=== PATIENT | female | born 1990 | race Two or more races ===

== ENCOUNTER 2016-06-25 17:16 | Observation (INO) | payer MEDICAID ==
[2016-06-25] MEDS ORDERED: ASPIRIN 81 MG CHEWABLE TABLET PO ONE (17:46)
--- NOTE | 2016-06-25 17:46 | Emergency Department Record ---
History of Present Illness - General Chief Complaint: Chest Pain Stated Complaint: CHEST PAIN,THADDEUS,RAPID HEART BEAT Time Seen by Provider: 06/25/16 17:39 Source: Patient, Family (caregiver), RN notes reviewed Mode of Arrival: Wheelchair - History of Present Illness Initial Comments: patient has been vomiting and developed chest pain and she also has diarrhea but she took a laxative yesterday which she uses all the time for constipation. PMH of progressive MS and she is in a wheel chair and has difficulty talking. Caregiver is with here and does most of the talking. Primary is Dr. Bryson. Onset/Timin -: Hour(s) Onset: Awoke with symptoms Pain Location: Substernal Severity: Moderate Quality: Aching Consistency: Constant Improves With: Nothing Worsens With: Nothing Treatments Prior to Arrival: None - Related Data Home Medications Medication Instructions Recorded Confirmed Last Taken Natalizumab [Tysabri] 300 mg IV MONTHLY 02/21/16 06/25/16 06/25/16 Dronabinol [Marinol] 2.5 mg PO QD cap 05/12/16 06/25/16 06/25/16 Meclizine HCl [Bonine] 25 mg PO QD PRN tab 05/12/16 06/25/16 06/25/16 Sennosides [Senna] 2 tab PO QD PRN tab 05/12/16 06/25/16 Unknown Simethicone 125 mg PO DAILY PRN cap 05/12/16 06/25/16 Unknown Allergies Allergy/AdvReac Type Severity Reaction Status Date / Time Sulfa (Sulfonamide Allergy Unknown PT UNSURE Unverified 06/09/16 14:23 Antibiotics) OF REACTION [SULFA (SULFONAMIDE ANTIBIOTICS)] Travel Screening - Travel/Exposure Within Last 30 Days Have you traveled within the last 30 days?: No - Travel/Exposure Within Last Year Have you traveled outside the [place] in the last year?: No - Additonal Travel Details Have you been exposed to anyone with a communicable illness?: No - Travel Symptoms Symptom Screening: None Review of Systems Reviewed: No additional complaints except as noted below Constitutional: Reports: As per HPI. Denies: Chills, Fever, Malaise, Night sweats, Weakness, Weight change Eyes: Reports: As per HPI. Denies: Eye discharge, Eye pain, Photophobia, Vision change ENT: Reports: As per HPI. Denies: Congestion, Dental pain, Ear pain, Epistaxis , Hearing loss, Throat pain Respiratory: Reports: As per HPI. Denies: Cough, Dyspnea, Hemoptysis, Stridor, Wheezes Cardiovascular: Reports: As per HPI, Chest pain. Denies: Arrhythmia, Dyspnea on exertion, Edema, Murmurs, Orthopnea, Palpitations, Paroxysmal nocturnal dyspnea, Rheumatic Fever, Syncope Endocrine: Reports: As per HPI. Denies: Fatigue, Heat or cold intolerance, Polydipsia, Polyuria Gastrointestinal: Reports: As per HPI, Abdominal pain, Diarrhea, Nausea, Vomiting. Denies: Constipation, Hematemesis, Hematochezia, Melena Genitourinary: Reports: As per HPI. Denies: Abnormal menses, Discharge, Dyspareunia, Dysuria, Frequency, Hematuria, Incontinence, Retention, Urgency Musculoskeletal: Reports: As per HPI. Denies: Arthralgia, Back pain, Gout, Joint swelling, Myalgia, Neck pain Skin: Reports: As per HPI. Denies: Bruising, Change in color, Change in hair/ nails, Lesions, Pruritus, Rash Neurological: Reports: As per HPI. Denies: Abnormal gait, Confusion, Headache, Numbness, Paresthesias, Seizure, Tingling, Tremors, Vertigo, Weakness Psychiatric: Reports: As per HPI. Denies: Anxiety, Auditory hallucinations, Depression, Homicidal thoughts, Suicidal thoughts, Visual hallucinations Hematological/Lymphatic: Reports: As per HPI. Denies: Anemia, Blood Clots, Easy bleeding, Easy bruising, Swollen glands Past Medical History - SOCIAL HISTORY Smoking Status: Never smoker Alcohol Use: None Drug Use: None - RESPIRATORY Hx Respiratory Disorders: No - CARDIOVASCULAR Hx Cardio Disorders: Yes Comment:: murmur - NEURO Hx Neuro Disorders: Yes Hx Dizziness: Yes Hx Headaches: Yes Comment:: multiple sclerosis - GI Hx GI Disorders: No - Hx Genitourinary Disorders: No - ENDOCRINE Hx Endocrine Disorders: No - MUSCULOSKELETAL Hx Musculoskeletal Disorders: No - PSYCH Hx Psych Problems: Yes Hx Anxiety: Yes Hx Depression: Yes - HEMATOLOGY/ONCOLOGY Hx Hematology/Oncology Disorders: No Family Medical History Any Significant Family History?: No Family Hx Comment (NOT TO BE USED IN PLACE OF ITEMS BELOW): Adopted Physical Exam - General General Appearance: Alert, Oriented x3, Cooperative, No acute distress - Head Head exam: Normal inspection - Eye Eye exam: Normal appearance, PERRL Pupils: Normal accommodation - ENT ENT exam: Normal exam, Mucous membranes moist, Normal external ear exam, Normal orophraynx, TM's normal bilaterally Ear exam: Normal external inspection. negative: External canal tenderness Nasal Exam: Normal inspection. negative: Discharge, Sinus tenderness Mouth exam: Normal external inspection, Tongue normal Teeth exam: Normal inspection. negative: Dental caries Throat exam: Normal inspection. negative: Tonsillar erythema, Tonsillar exudate - Neck Neck exam: Normal inspection, Full ROM. negative: Tenderness - Respiratory Respiratory exam: Normal lung sounds bilaterally. negative: Respiratory distress - Cardiovascular Cardiovascular Exam: Regular rate, Normal rhythm, Normal heart sounds - GI/Abdominal GI/Abdominal exam: Soft, Normal bowel sounds, Tenderness (epigastric pain on palpation and the pain goes into her chest) - Rectal Rectal exam: Deferred - exam: Deferred - Extremities Extremities exam: Normal inspection, Full ROM, Normal capillary refill. negative: Tenderness - Back Back exam: Reports: Normal inspection, Full ROM. Denies: Muscle spasm, Rash noted, Tenderness - Neurological Neurological exam: Alert, Normal gait, Oriented X3, Reflexes normal - Psychiatric Psychiatric exam: Normal affect, Normal mood - Skin Skin exam: Dry, Intact, Normal color, Warm Course Vital Signs 06/25/16 17:20 Temperature 99.3 F Pulse Rate 113 H Respiratory 20 Rate Blood Pressure 115/89 Pulse Ox 98 - Reevaluation(s) Reevaluation #1: discussed case with chelsie and will admit to Dr. Bryson for serial cardiac enzymes. 06/25/16 18:50 Medical Decision Making - Lab Data Result diagrams: 06/25/16 18:04 06/25/16 18:04 Disposition Clinical Impression: Chest pain, Abdominal pain, Hypokalemia, Multiple sclerosis, Gastroesophageal reflux disease Decision to Admit: Admit from ER Forms: Patient Portal Access Time of Disposition: 18:57
[2016-06-25] MEDS ORDERED: AL HYDROX/MAG HYDROX 30ML UD PO ONE ×2 (17:49→18:48)
[2016-06-25 18:09] LABS: BASO % 0.3 % (0-6); EOS % 0.7 % (0-6); GRAN % 54.9 % (47-80); HEMATOCRIT 43.2 % (35.0-47.0); LYMPH % 31.7 % (16-45); MEAN CELL VOLUME 82.8 fl (81-97); MEAN CORPUSCULAR HEMOGLOBIN 28.7 pg (27-33); MEAN CORPUSCULAR HGB CONC 34.7 g/dl (32-36); MEAN PLATELET VOLUME 10.7 fl (7.4-10.4); MONO % 12.4 % (0-9); PLATELET COUNT 359 K/uL (130-400); RED BLOOD COUNT 5.22 M/uL (3.80-5.40); RED CELL DISTRIBUTION WIDTH 13.5 % (11.5-14.5)
[2016-06-25 18:21] LABS: ALBUMIN 4.8 gm/dL (3.5-5.0); BILIRUBIN,TOTAL 0.47 mg/dL (0.2-1.3); TOTAL PROTEIN 8.2 gm/dL (6.3-8.2)
[2016-06-25 18:22] LABS: ANION GAP 12.1 (7-16); BLOOD UREA NITROGEN 10 mg/dL (7-17); CARBON DIOXIDE 29.9 mmol/L (22-30); CREATININE 0.5 mg/dL (0.52-1.04); EST GLOMERULAR FILTRATION RATE > 60 ml/min; GLUCOSE,RANDOM 91 mg/dL (70-110)
[2016-06-25 18:33] LABS: CKMB 0.2 ug/L (0-6); TROPONIN I < 0.012 ng/mL (0.00-0.034)
[2016-06-25] MEDS ORDERED: POTASSIUM CHLORIDE 20 MEQ TABLET PO ONE (18:41)
[2016-06-25 18:47] LABS: URINE APPEARANCE SL CLOUDY; URINE BILIRUBIN SMALL (NEGATIVE); URINE BLOOD NEGATIVE (NEGATIVE); URINE COLOR YELLOW; URINE GLUCOSE (UA) NEGATIVE (NEGATIVE); URINE KETONE 40 mg/dL (NEGATIVE); URINE LEUKOCYTE ESTERASE NEGATIVE (NEGATIVE); URINE NITRITE NEGATIVE (NEGATIVE)
[2016-06-25] MEDS ORDERED: PANTOPRAZOLE SODIUM 40 MG TABLET PO ONE (18:49)
[2016-06-25] MEDS ORDERED: 0.9 % SODIUM CHLORIDE 1000ML 1,000 ML IV PRN (18:58)
[2016-06-25] MEDS ORDERED: ACETAMINOPHEN 500 MG TABLET PO PRN (18:58)
[2016-06-25] MEDS: ONDANSETRON HCL IV 4 MG/2 ML VIAL IVP PRN (21:37)
[2016-06-25] MEDS ORDERED: SUCRALFATE 1 G/10 ML UD PO ONE (21:51)
[2016-06-26] MEDS ORDERED: CALCIUM CARBONATE 500 MG TAB.CHEW PO SCH ×2 (00:30→12:20)
[2016-06-26 01:15] LABS: CKMB < 0.2 ug/L (0-6); TROPONIN I < 0.012 ng/mL (0.00-0.034)
--- NOTE | 2016-06-26 09:49 | History & Physical ---
History of Present Illness - Date of Service Date of Service for History & Physical: 06/26/16 - History of Present Illness Admitting Diagnosis: chest pain History of Present Illness: 25 yo female admitted w/ CC of chest pain. PMHx of MS (diagnosed in 2008), chronic nausea, constipation, h/o bleeding ulcer when patient was 10 years old, and unintentional weight loss of 43 #'s in the past 3 months. Patient brought to our ED yesterday by her caregiver for chest pain. Onset of chest pain was yesterday morning. Patient woke up with substernal chest pain. described as sharp/achy. Aggravated by nothing. Alleviated by Tums. Associated symptoms included diaphoresis, abdominal discomfort and nausea. Upon presentation, temp 99.3, HR 113, RR 20, BP 115/89, pulse ox 98 % on RA. CBC/BMP relatively normal aside from low potassium of 3.1. normal hepatic function. amylase/lipase normal. ESR normal. UA: 30 mg protein, 40 mg ketones , small bili, no leuks. CXR: EKG: ST dep in II, III, AVF. t wave inversion V1 ,2. ST depression V3,4,5,6. Patient received 20 mEq of Potassium in the ER. Serial enzymes ordered. Placed on Telemetry and admitted for further medical management. 06/26/16: This morning, patient lying in bed comfortably with mother at bedside. Patient has difficulty with communication. History obtained from patient and caregiver. She denies any chest pain since yesterday evening. States she found Tums to alleviate her pain completely. Nausea well controlled at this time. Denies abdominal pain, fever, chills, vomiting, cough, jaw or upper extremity pain. RUQ abdominal pain on exam, however. +dysphagia to both liquids/solids. Patient deals with chronic nausea and constipation. Patient typically take Senna and a daily probiotic at home. patient's primary physician placed patient on an antibiotic for UTI like symptoms last week, however this was discontinued as it worsened patient's nausea and caused diarrhea. Diarrhea resolved once antibiotic was stopped. patient now has not had a bowel movement since Thursday. Caregiver reports 3 month h/o nausea. Nausea has not been associated with any medication changes. Meclizine helps with nausea. Since nausea began 3 months ago, patient has also experienced a 43 # unintentional weight loss. Patient does not currently have a GI doctor. Patient is adopted and unsure of any family cardiac history. no previous history of DVT. PCP: Dr. Fregoso Neurologist: Dr. Rausch Travel Screening - Travel/Exposure Within Last 30 Days Have you traveled within the last 30 days?: No - Travel/Exposure Within Last Year Have you traveled outside the [place] in the last year?: No - Additonal Travel Details Have you been exposed to anyone with a communicable illness?: No - Travel Symptoms Symptom Screening: None Review of Systems Constitutional: Reports: As per HPI. Denies: Chills, Fever, Malaise, Night sweats, Weakness, Weight change Eyes: Reports: As per HPI. Denies: Eye discharge, Eye pain, Photophobia, Vision change ENT: Reports: As per HPI. Denies: Congestion, Dental pain, Ear pain, Epistaxis , Hearing loss, Throat pain Respiratory: Reports: As per HPI. Denies: Cough, Dyspnea, Hemoptysis, Stridor, Wheezes Cardiovascular: Reports: As per HPI. Denies: Arrhythmia, Chest pain, Dyspnea on exertion, Edema, Murmurs, Orthopnea, Palpitations, Paroxysmal nocturnal dyspnea, Rheumatic Fever, Syncope Endocrine: Reports: As per HPI. Denies: Fatigue, Heat or cold intolerance, Polydipsia, Polyuria Gastrointestinal: Reports: As per HPI, Abdominal pain, Nausea. Denies: Constipation, Diarrhea, Hematemesis, Hematochezia, Melena, Vomiting Genitourinary: Reports: As per HPI. Denies: Abnormal menses, Discharge, Dyspareunia, Dysuria, Frequency, Hematuria, Incontinence, Retention, Urgency Musculoskeletal: Reports: As per HPI. Denies: Arthralgia, Back pain, Gout, Joint swelling, Myalgia, Neck pain Skin: Reports: As per HPI. Denies: Bruising, Change in color, Change in hair/ nails, Lesions, Pruritus, Rash Neurological: Reports: As per HPI. Denies: Abnormal gait, Confusion, Headache, Numbness, Paresthesias, Seizure, Tingling, Tremors, Vertigo, Weakness Psychiatric: Reports: As per HPI. Denies: Anxiety, Auditory hallucinations, Depression, Homicidal thoughts, Suicidal thoughts, Visual hallucinations Hematological/Lymphatic: Reports: As per HPI. Denies: Anemia, Blood Clots, Easy bleeding, Easy bruising, Swollen glands Past Medical History - SOCIAL HISTORY Smoking Status: Never smoker Alcohol Use: None Drug Use: None - RESPIRATORY Hx Respiratory Disorders: No - CARDIOVASCULAR Hx Cardio Disorders: Yes Comment:: murmur - NEURO Hx Neuro Disorders: Yes Hx Dizziness: Yes Hx Headaches: Yes Comment:: multiple sclerosis - GI Hx GI Disorders: No Hx Wt Loss/Wt Gain: Yes (30 pound weight loss since 03/14/16) Comment:: constipation-takes Senna daily - Hx Genitourinary Disorders: No - ENDOCRINE Hx Endocrine Disorders: No - MUSCULOSKELETAL Hx Musculoskeletal Disorders: No - PSYCH Hx Psych Problems: Yes Hx Anxiety: Yes Hx Depression: Yes - HEMATOLOGY/ONCOLOGY Hx Hematology/Oncology Disorders: No Family Medical History Any Significant Family History?: No Family Hx Comment (NOT TO BE USED IN PLACE OF ITEMS BELOW): Adopted H&P Meds/Allergies - Allergies Allergies: Allergies Allergy/AdvReac Type Severity Reaction Status Date / Time Sulfa (Sulfonamide Allergy Unknown PT UNSURE Unverified 06/09/16 14:23 Antibiotics) OF REACTION [SULFA (SULFONAMIDE ANTIBIOTICS)] - Home Medications Home Medications Medication Instructions Recorded Confirmed Last Taken Natalizumab [Tysabri] 300 mg IV MONTHLY 02/21/16 06/25/16 06/25/16 Dronabinol [Marinol] 2.5 mg PO QD cap 05/12/16 06/25/16 06/25/16 Meclizine HCl [Bonine] 25 mg PO QD PRN tab 05/12/16 06/25/16 06/25/16 Sennosides [Senna] 2 tab PO QD PRN tab 05/12/16 06/25/16 Unknown Simethicone 125 mg PO DAILY PRN cap 05/12/16 06/25/16 Unknown - Active Medications Active Medications: Current Medications Acetaminophen (Tylenol 500mg Tab) 500 mg PO Q6H PRN PRN Reason: PAIN/TEMP Last Admin: 06/26/16 00:23 Dose: 500 mg Enoxaparin Sodium (Lovenox) 40 mg SC DAILY [facility] Hydroxyzine Pamoate (Vistaril) 25 mg PO TID PRN PRN Reason: anxiety Sodium Chloride () 1,000 mls @ 40 mls/hr IV .Q24H PRN PRN Reason: LARGE VOLUME IV Ondansetron HCl (Zofran) 4 mg IVP Q4H PRN PRN Reason: NAUSEA Last Admin: 06/25/16 21:37 Dose: 4 mg Pantoprazole Sodium (Protonix Iv) 40 mg IV DAILY [facility] Patient Own Med: (Marinol 2.5 Mg) 1 each PO DAILY [facility] Patient Own Med: (Cranberry 500 Mg) 2 each PO DAILY [facility] Patient Own Med: Vitamin C 1000 Mg ( Ascorbic Acid) 1 each PO DAILY [facility] Senna/Docusate Sodium (Senna Plus) 2 each PO BID [facility] Physical Exam - Vital Signs Vital Signs: Vital Signs - Last 24 Hrs Temp Pulse Resp BP BP Pulse Ox 06/26/16 09:01 98.1 F 118 H 16 114/62 99 06/26/16 05:50 97.8 F 87 18 130/98 97 06/25/16 22:55 99.1 F 96 H 147/87 96 06/25/16 22:35 96 H 150/96 96 06/25/16 22:20 85 147/97 96 06/25/16 22:05 90 20 147/98 96 06/25/16 21:50 98.7 F 88 26 H 149/95 93 L 06/25/16 20:41 98.5 F 84 21 117/74 97 - General General Appearance: Alert, Oriented x3, Cooperative, No acute distress - Head Head exam: Normal inspection - Eye Eye exam: Normal appearance, PERRL Pupils: Normal accommodation - ENT ENT exam: Normal exam, Mucous membranes moist, Normal external ear exam, Normal orophraynx, TM's normal bilaterally Ear exam: Normal external inspection. negative: External canal tenderness Nasal Exam: Normal inspection. negative: Discharge, Sinus tenderness Mouth exam: Normal external inspection, Tongue normal Teeth exam: Normal inspection. negative: Dental caries Throat exam: Normal inspection. negative: Tonsillar erythema, Tonsillar exudate - Neck Neck exam: Normal inspection, Full ROM. negative: Tenderness - Respiratory Respiratory exam: Normal lung sounds bilaterally. negative: Respiratory distress - Cardiovascular Cardiovascular Exam: Normal rhythm, Normal heart sounds, Tachycardia - GI/Abdominal GI/Abdominal exam: Soft, Normal bowel sounds, Tenderness (RUQ on palpation) - Rectal Rectal exam: Deferred - exam: Deferred - Extremities Extremities exam: Normal inspection, Full ROM, Normal capillary refill. negative: Tenderness - Back Back exam: Reports: Normal inspection, Full ROM. Denies: Muscle spasm, Rash noted, Tenderness - Neurological Neurological exam: Alert, Normal gait, Oriented X3, Reflexes normal - Psychiatric Psychiatric exam: Normal affect, Normal mood - Skin Skin exam: Dry, Intact, Normal color, Warm Results - Labs Result Diagrams: 06/25/16 18:04 06/25/16 18:04 Labs Last 24 Hours: Laboratory Results - last 24 hr 06/26/16 00:48 CK-MB (CK-2) < 0.2 Troponin I < 0.012 VTE H&P Assessment - Risk for VTE Risk for VTE: Yes Risk Level: Low Risk Assessment Date: 06/26/16 Risk Assessment Time: 10:00 VTE Orders Placed or Will Be Placed: Yes Plan - Detailed Diagnosis and Plan (1) Abdominal pain Current Visit: Yes Status: Acute Base Code: R10.9 - UNSPECIFIED ABDOMINAL PAIN Comment: 06/26/16: biliary vs. constipation vs. other? - abd u/s ordered to r/o biliary etiology - patient w/o bowel movement since thursday. active BS's on exam. Will start home bowel regimen back up. - mother reports patient had bleeding peptic ulcer when she was 10 yo. Will continue Pantoprazole. - no melena, hematemesis, or hematochezia. - continue anti emetics as needed for nausea - 43 # weight loss within the last 3 months along with nausea since that time. - outpatient gastroenterology referral recommended to further evaluate chronic nausea, dysphagia and unintentional weight loss. (2) Chest pain Current Visit: Yes Status: Acute Base Code: R07.9 - CHEST PAIN, UNSPECIFIED Comment: 06/26/16: Cardiac vs. GI vs. anxiety vs. other? - CE negative x 3 - EKG (in the ED): ST dep II,III,AVF. T wave inversion V1,2. ST dep V3,4,5,6. - CP resolved with TUMS. Denies CP, upper extremity or jaw pain, SOB, dizziness. - Family cardiac hx unknown as patient is adopted. non smoker. - ECHO ordered for 06/27/16. (3) Hypokalemia Current Visit: Yes Status: Acute Base Code: E87.6 - HYPOKALEMIA Comment: 06/26/16: received 20 mEq of PO Potassium in the ED. Will recheck potassium level today and replace if needed. (4) Multiple sclerosis Current Visit: Yes Status: Acute Base Code: G35 - MULTIPLE SCLEROSIS Comment: 06/26/16: continue home medications. (5) DVT prophylaxis Current Visit: Yes Status: Acute Base Code: [id number] - Comment: 06/26/16: Low risk- no ambulation. Lovenox 40 mg SQ daily. (6) Full code status Current Visit: Yes Status: Acute Base Code: Z78.9 - OTHER SPECIFIED HEALTH STATUS Comment: 06/26/16: patient will remain full code during her hospitalization
[2016-06-26] MEDS: HYDROXYZINE PAMOATE 25 MG CAPSULE PO PRN ×3 (09:51→22:04)
[2016-06-26] MEDS: PANTOPRAZOLE SODIUM IV 40 MG VIAL IV SCH (09:51)
[2016-06-26] MEDS: ENOXAPARIN 40 MG/0.4 ML SYR SC SCH (09:51)
[2016-06-26] MEDS: MARINOL PO SCH ×2 (09:52→10:13)
[2016-06-26 09:54] LABS: CKMB < 0.2 ug/L (0-6); TROPONIN I < 0.012 ng/mL (0.00-0.034)
[2016-06-26] MEDS: BIFIDOBACTERIUM INFANTIS 4 MG CAPSULE PO SCH (10:04)
[2016-06-26] MEDS: SENNOSIDES/DOCUSATE SODIUM UD CAPSULE PO SCH ×2 (10:04→22:03)
[2016-06-26] MEDS: CRANBERRY 500 MG PO SCH (10:13)
[2016-06-26] MEDS: VITAMIN C 1000 MG PO SCH (10:14)
[2016-06-26] MEDS ORDERED: ALBUTEROL HFA 8 GM INHALER INH PRN (11:43)
[2016-06-26] MEDS ORDERED: CALCIUM CARBONATE 500 MG TAB.CHEW PO PRN (12:02)
[2016-06-26 17:30] LABS: CKMB < 0.2 ug/L (0-6); TROPONIN I < 0.012 ng/mL (0.00-0.034)
[2016-06-26] MEDS: ONDANSETRON HCL IV 4 MG/2 ML VIAL IVP PRN (20:07)
[2016-06-27] MEDS ORDERED: DIPHENHYDRAMINE HCL 25 MG CAPSULE PO PRN (00:22)
[2016-06-27 06:32] LABS: ANION GAP 10.8 (7-16); BLOOD UREA NITROGEN 9 mg/dL (7-17); CARBON DIOXIDE 28.2 mmol/L (22-30); CREATININE 0.5 mg/dL (0.52-1.04); EST GLOMERULAR FILTRATION RATE > 60 ml/min; GLUCOSE,RANDOM 88 mg/dL (70-110)
--- NOTE | 2016-06-27 07:16 | RADIOLOGY REPORT ---
EXAM: CHEST, TWO VIEWS HISTORY: RAPID HEART BEAT WITH CHEST PAIN AND DIFFICULTY BREATHING. TECHNIQUE: AP and lateral views of the chest were obtained. Comparison: 01/21/16. FINDINGS: The heart, mediastinum, and pulmonary vasculature are normal. The lungs are clear. There is no pneumothorax or effusion. The bones appear intact. IMPRESSION: STABLE CHEST WITH NO ACUTE PROCESS IDENTIFIED. JOB NUMBER: [id number] MTDD
--- NOTE | 2016-06-27 07:24 | ULTRASOUND REPORT ---
EXAM: ULTRASOUND OF THE ABDOMEN COMPLETE HISTORY: RIGHT UPPER QUADRANT ABDOMINAL PAIN AND TENDERNESS SINCE FEBRUARY OF 2016. TECHNIQUE: Routine ultrasound examination of the abdomen was performed. Comparison: None. FINDINGS: The examination is mildly limited due to patient motion. The pancreas and left liver lobe are not optimally visualized due to overlying bowel gas. The visualized portions of the pancreas are normal in appearance. The abdominal aorta and inferior vena cava are normal in appearance. The visualized liver is homogeneous in echotexture and no intra or extrahepatic biliary ductal dilatation is seen with the common hepatic duct measuring 3.3 mm. The gallbladder is normal in appearance. The spleen is not enlarged and is homogeneous in echotexture. the kidneys to the extent visualized are smoothly marginated and without hydronephrosis. The right kidney measures 12.2 cm in length while the left kidney measures 11.8 cm in length. No cystic nor contour deforming solid renal mass is seen. There is a 6 mm echogenic focus in the upper pole of the right kidney consistent with avascular reflection or nonshadowing, nonobstructing calculus. IMPRESSION: 1. THE EXAM IS MILDLY LIMITED WITH THE PANCREAS AND LEFT LIVER LOBE NOT OPTIMALLY VISUALIZED. 2. 6 MM ECHOGENIC FOCUS IN THE UPPER POLE OF THE RIGHT KIDNEY IS CONSISTENT WITH AVASCULAR REFLECTION OR NONOBSTRUCTING CALCULUS. 3. NO OTHER ABNORMALITY IS IDENTIFIED. JOB NUMBER: [id number] [facility]
[2016-06-27] MEDS: ONDANSETRON HCL IV 4 MG/2 ML VIAL IVP PRN (08:41)
[2016-06-27] MEDS ORDERED: BISACODYL 10 MG SUPP RC ONE (09:40)
[2016-06-27] MEDS: SENNOSIDES/DOCUSATE SODIUM UD CAPSULE PO SCH (10:29)
[2016-06-27] MEDS: MARINOL PO SCH (10:30)
[2016-06-27] MEDS: VITAMIN C 1000 MG PO SCH (10:32)
[2016-06-27] MEDS: CRANBERRY 500 MG PO SCH (10:32)
[2016-06-27] MEDS: BIFIDOBACTERIUM INFANTIS 4 MG CAPSULE PO SCH (10:33)
[2016-06-27] MEDS: HYDROXYZINE PAMOATE 25 MG CAPSULE PO PRN (10:33)
[2016-06-27] MEDS: ENOXAPARIN 40 MG/0.4 ML SYR SC SCH (10:36)
--- NOTE | 2016-06-27 11:22 | Discharge Summary ---
Providers Discharge Summary Date: 06/27/16 Date of admission: 06/25/16 20:09 Expected Date of Discharge: 06/27/16 Attending physician: AZUL SOTELO Primary care physician: AZUL SOTELO Physical Exam - Vital Signs Vital Signs: Vital Signs - Last 24 Hrs Temp Pulse Resp BP BP BP Pulse Ox 06/27/16 09:10 98.2 F 75 16 118/71 100 06/27/16 09:00 73 17 06/27/16 07:35 98.3 F 92 H 16 108/73 99 06/27/16 03:00 97.6 F 68 12 159/88 98 06/26/16 19:38 98.1 F 72 14 102/69 98 06/26/16 16:51 98.2 F 88 14 111/72 100 06/26/16 13:00 98.4 F 100 H 18 94/58 100 06/26/16 11:36 98.1 F 114/62 - General General Appearance: Alert, Oriented x3, Cooperative, No acute distress - Head Head exam: Normal inspection - Eye Eye exam: Normal appearance, PERRL Pupils: Normal accommodation - ENT ENT exam: Normal exam, Mucous membranes moist, Normal external ear exam, Normal orophraynx, TM's normal bilaterally Ear exam: Normal external inspection. negative: External canal tenderness Nasal Exam: Normal inspection. negative: Discharge, Sinus tenderness Mouth exam: Normal external inspection, Tongue normal Teeth exam: Normal inspection. negative: Dental caries Throat exam: Normal inspection. negative: Tonsillar erythema, Tonsillar exudate - Neck Neck exam: Normal inspection, Full ROM. negative: Tenderness - Respiratory Respiratory exam: Normal lung sounds bilaterally. negative: Respiratory distress - Cardiovascular Cardiovascular Exam: Normal rhythm, Normal heart sounds, Tachycardia - GI/Abdominal GI/Abdominal exam: Soft, Normal bowel sounds. negative: Tenderness - Rectal Rectal exam: Deferred - exam: Deferred - Extremities Extremities exam: Normal inspection, Full ROM, Normal capillary refill. negative: Tenderness - Back Back exam: Reports: Normal inspection, Full ROM. Denies: Muscle spasm, Rash noted, Tenderness - Neurological Neurological exam: Alert, Normal gait, Oriented X3, Reflexes normal - Psychiatric Psychiatric exam: Normal affect, Normal mood - Skin Skin exam: Dry, Intact, Normal color, Warm Hospitalization - Hospitalization Admission Diagnosis: chest pain - Problem List/Discharge Diagnosis (1) Abdominal pain Current Visit: Yes Status: Acute Base Code: R10.9 - UNSPECIFIED ABDOMINAL PAIN Comment: 06/27/16: ABD u/s: gallbladder unremarkable. - I suspect generalized abdominal pain related to constipation/gas. No rebound or guarding on exam. Patient with large bowel movement today which improve abd pain. - active BS's on exam. - continue home bowel regimen. - mother reports patient had bleeding peptic ulcer when she was 10 yo. -Will continue Pantoprazole as outpatient. - no melena, hematemesis, or hematochezia. - continue anti emetics as needed for nausea - 43 # weight loss within the last 3 months along with nausea since that time. - outpatient gastroenterology referral placed. this was recommended to further evaluate chronic nausea, dysphagia and unintentional weight loss. Gave patient' s caregiver [facility] number so that she can contact to schedule an appt at their earliest convenience. - encouraged family/caregiver to bring patient back re any new or worsening abd pain. - f/up visit with Dr. Ley on July 14. (2) Chest pain Current Visit: Yes Status: Acute Base Code: R07.9 - CHEST PAIN, UNSPECIFIED Comment: 06/27/16: Cardiac vs. GI vs. anxiety vs. other? - CE negative x 4 - EKG (in the ED): ST dep II,III,AVF. T wave inversion V1,2. ST dep V3,4,5,6. - CP resolved with TUMS 06/26/16. Denies CP, upper extremity or jaw pain, SOB, dizziness. - Family cardiac hx unknown as patient is adopted. non smoker. - ECHO 06/27/16: EF of 63% - outpatient cardiology referral placed - encouraged mother and caregiver to bring patient back to the ER if chest pain returns. (3) Hypokalemia Current Visit: Yes Status: Acute Base Code: E87.6 - HYPOKALEMIA Comment: 06/27/16: resolved (4) Multiple sclerosis Current Visit: Yes Status: Acute Base Code: G35 - MULTIPLE SCLEROSIS Comment: 06/27/16: continue home medications. (5) Full code status Current Visit: Yes Status: Acute Base Code: Z78.9 - OTHER SPECIFIED HEALTH STATUS Comment: 06/27/16: patient remained full code during her hospitalization - Hospitalization Course Disposition: Home Health Service Hospital Course: 25 yo female admitted w/ CC of chest pain. PMHx of MS (diagnosed in 2008), chronic nausea, constipation, h/o bleeding ulcer when patient was 10 years old, and unintentional weight loss of 43 #'s in the past 3 months. Patient brought to our ED yesterday by her caregiver for chest pain. Onset of chest pain was yesterday morning. Patient woke up with substernal chest pain. described as sharp/achy. Aggravated by nothing. Alleviated by Tums. Associated symptoms included diaphoresis, abdominal discomfort and nausea. Upon presentation, temp 99.3, HR 113, RR 20, BP 115/89, pulse ox 98 % on RA. CBC/BMP relatively normal aside from low potassium of 3.1. normal hepatic function. amylase/lipase normal. ESR normal. UA: 30 mg protein, 40 mg ketones , small bili, no leuks. CXR: EKG: ST dep in II, III, AVF. t wave inversion V1 ,2. ST depression V3,4,5,6. Patient received 20 mEq of Potassium in the ER. Serial enzymes ordered. Placed on Telemetry and admitted for further medical management. 06/26/16: This morning, patient lying in bed comfortably with mother at bedside. Patient has difficulty with communication. History obtained from patient and caregiver. She denies any chest pain since yesterday evening. States she found Tums to alleviate her pain completely. Nausea well controlled at this time. Denies abdominal pain, fever, chills, vomiting, cough, jaw or upper extremity pain. RUQ abdominal pain on exam, however. +dysphagia to both liquids/solids. Patient deals with chronic nausea and constipation. Patient typically take Senna and a daily probiotic at home. patient's primary physician placed patient on an antibiotic for UTI like symptoms last week, however this was discontinued as it worsened patient's nausea and caused diarrhea. Diarrhea resolved once antibiotic was stopped. patient now has not had a bowel movement since Thursday. Caregiver reports 3 month h/o nausea. Nausea has not been associated with any medication changes. Meclizine helps with nausea. Since nausea began 3 months ago, patient has also experienced a 43 # unintentional weight loss. Patient does not currently have a GI doctor. Patient is adopted and unsure of any family cardiac history. no previous history of DVT. PCP: Dr. Sotelo Neurologist: Dr. Rausch\ 06/27/16: still no stool since thursday. patient w/ nausea- iv zofran helped. no vomiting. tolerated diet. no chest pain, heart palpitations, or sob. +gas , abdominal pain w/ palpation, no rebound or guarding. +BS in all 4 quadrants. ECHO: EF 63% Procedures: Imaging and X-Rays 06/26/16 10:46 ABDOMEN, COMPLETE [US] Stat Cardiology Procedures 06/26/16 09:24 Echocardiogram 2D - Limited ONCE Abnormal Labs: Abnormal Lab Results 06/27/16 Range/Units 06:10 Creatinine 0.5 L (0.52-1.04) mg/dL Condition at Discharge: (2) Stable Discharge Medications - Discharge Medications Prescriptions: Pantoprazole Sodium [Protonix] 40 mg PO DAILY #30 tablet. Home Medications: Ambulatory Orders Natalizumab [Tysabri] 300 mg IV MONTHLY 02/21/16 [Last Taken 06/25/16] Dronabinol [Marinol] 2.5 mg PO QD cap 05/12/16 [Last Taken 06/25/16] Meclizine HCl [Bonine] 25 mg PO QD PRN tab 05/12/16 [Last Taken 06/25/16] Sennosides [Senna] 2 tab PO QD PRN tab 05/12/16 [Last Taken Unknown] Simethicone 125 mg PO DAILY PRN cap 05/12/16 [Last Taken Unknown] Pantoprazole Sodium [Protonix] 40 mg PO DAILY #30 tablet. 06/27/16 [Last Taken Unknown] Discharge Plan - Discharge Instructions Activity at Discharge: Increase Activity as Tolerated Diet at Discharge: Regular Diet Additional Instructions: fruit or nut picker medications and take as directed. i've sent pantoprazole 40 mg daily to pharmacy for acid reflux/ abdominal pain. low acid diet, elevate head of bed following meals. continue home bowel regimen including daily probiotic referral to gastroenterology placed. Please contact their office to schedule a visit. [phone]. referral to cardiology has also been placed. They will contact you to schedule a visit. Follow up with Dr. Ley on July 14. Return to the ED sooner re any acute problems such as chest pain, sob, fever, chills, worsening abdominal pain, dizziness or lightheadedness.
[2016-06-27] MEDS ORDERED: SIMETHICONE 80 MG TAB.CHEW PO PRN (12:18)
[2016-06-27] MEDS: PANTOPRAZOLE SODIUM IV 40 MG VIAL IV SCH (13:28)
== END 2016-06-27 16:30 | disposition home health service (06) ==
LOC: ER 17:16 → MEDSURG 20:09
PROVIDERS: ADMIT Family Medicine; ATTEND Family Medicine
DX: R10.9 Unspecified abdominal pain (principal); R63.4 Abnormal weight loss; R07.9 Chest pain, unspecified; E87.6 Hypokalemia; G35 Multiple sclerosis; R11.0 Nausea
CPT/HCPCS: 99285 ×2; 83735; 83690; 84100; 85025; 85651; 85730; 80076; 82553 ×2; 84484 ×2; 80048 ×2; 81003; 71020; 76700; 93005; 93010; G0378 ×3; J2405 ×3; 99217; 99220; C9113; J1650